=== PATIENT | female | born 1970 | race Caucasian/White ===

== ENCOUNTER 2023-09-12 04:51 | Emergency (ER) | payer MEDICAID ==
[~2023-09-12] VITALS: Ht 165.1 cm; Wt 60.0 kg
[2023-09-12 04:55] VITALS: BP 160/90; PULSE 80; RESP 18; TEMP 98.4; O2SAT 98
== END 2023-09-12 08:57 | disposition left against medical advice (07) ==
LOC: ER 04:51
DX: Z53.21 Procedure and treatment not carried out due to patient leaving prior to being seen by health care provider (principal)
CPT/HCPCS: 99281